=== PATIENT | female | born 1950 | race African-American/Black ===

== ENCOUNTER 2017-08-26 06:53 | Inpatient (IN) | payer MEDICARE, OTHER ==
[~2017-08-26] VITALS: Ht 160 cm; Wt 87.6 kg
[2017-08-26] MEDS ORDERED: LIDOCAINE HCL/PF 1% 2ML VIAL ONE (07:22)
[2017-08-26] MEDS ORDERED: SODIUM CHLORIDE 0.9% 1,000 ML IV ONE (07:22)
[2017-08-26 07:44] LABS: BASOPHILS % 0.4 % (0.0-2.0); EOSINOPHILS % 0.9 % (0.0-5.0); HEMATOCRIT. 35.3 % (36.0-48.0); HEMOGLOBIN. 11.9 g/dL (12.0-16.0); LYMPHOCYTES % 20.8 % (20.0-50.0); MEAN CORPUSCULAR HEMOGLOBIN 28.6 pg (28.0-32.0); MEAN CORPUSCULAR VOLUME 84.9 fL (81.0-99.0); MEAN PLATELET VOLUME 10.2 fl (7.4-10.4); MONOCYTES % 4.8 % (2.0-8.0); NEUTROPHILS % 73.1 % (40.0-76.0); PLATELET 137 x1000/uL (130-400); RED BLOOD CELL COUNT 4.15 mill/uL (4.2-5.4); RED CELL DISTRIBUTION WIDTH 13.1 % (11.6-14.6)
[2017-08-26 07:52] LABS: BG BASE EXCESS 0.8 mmol/L (-2.0-2.0); BG CARBOXYHEMOGLOBIN 0.4 % (0.5-1.5); BG DEOXYHEMOGLOBIN 4.8 % (0.0-5.0); BG HCO3 ACT 27.1 mmol/L (22.0-26.0); BG METHEMOGLOBIN 0.5 % (0.0-1.5); BG OXYGEN SATURATION 95.2 % (92.0-98.5); BG OXYHEMOGLOBIN 94.3 % (94.0-97.0); BG PCO2 50.8 mmHg (35.0-45.0); BG PH 7.345 (7.350-7.450); BG PO2 76.2 mmHg (75.0-100.0); BG SAMPLE SITE RIGHT RADIAL; BG TOTAL HEMOGLOBIN 12.1 g/dL (12.0-18.0); BG VENT MODE ROOM AIR
[2017-08-26 07:53] LABS: CHLORIDE 96 mEq/L (98-107)
[2017-08-26 08:00] VITALS: BP 152/62
[2017-08-26 08:01] LABS: CARBON DIOXIDE 27 mEq/L (21-32); TROPONIN I < 0.02 ng/mL (0.00-0.04)
[2017-08-26 08:03] LABS: BETA HYDROXYBUTYRATE 0.1 mMol/L (0.0-0.3)
[2017-08-26] MEDS ORDERED: INSULIN REGULAR (HUMULIN R) UD 100 UNITS/ML SYR SUBCUT ONE (08:30)
[2017-08-26] MEDS ORDERED: INSULIN REGULAR (HUMULIN R) 300UNITS/3ML SUBCUT NR (08:35)
[2017-08-26 08:47] LABS: CLARITY URINE CLEAR (CLEAR); COLOR URINE YELLOW (YELLOW); GLUCOSE URINE 3+ (NEGATIVE); KETONES URINE NEGATIVE (NEGATIVE); LEUKOCYTE ESTERASE URINE NEGATIVE (NEGATIVE); NITRITE URINE NEGATIVE (NEGATIVE); OCCULT BLOOD URINE 1+ (NEGATIVE); PROTEIN URINE 2+ (NEGATIVE); SPECIFIC GRAVITY URINE 1.027 (1.005-1.030); UROBILINOGEN URINE 0.2 E.U./dL (0.2-1.0)
[2017-08-26 10:00] VITALS: BP 152/62
[2017-08-26 12:00] VITALS: BP 188/78
[2017-08-26] MEDS ORDERED: DEXTROSE 50% WATER 50ML SYRINGE IV PRN (14:15)
[2017-08-26] MEDS: BLOOD SUGAR DIAGNOSTIC STRIP TEST SCH ×3 (14:28→20:38)
[2017-08-26] MEDS: INSULIN LISPRO 100 UNITS/ML SUBCUT SCH ×3 (14:43→20:46)
[2017-08-26 16:00] VITALS: BP 162/99
[2017-08-26] MEDS: ENOXAPARIN 40MG/0.4ML SYR SUBCUT SCH (18:09)
[2017-08-26 20:00] VITALS: BP 165/62
[2017-08-26] MEDS: AMLODIPINE 5MG TABLET PO SCH (20:38)
[2017-08-26 23:42] LABS: CREATINE KINASE MB FRACTION 2.8 ng/mL (0.5-3.6); TROPONIN I 0.02 ng/mL (0.00-0.04)
[2017-08-27] VITALS: BP 145/60
[2017-08-27 04:00] VITALS: BP 162/80
[2017-08-27 05:45] LABS: BASOPHILS % 0.5 % (0.0-2.0); EOSINOPHILS % 2.2 % (0.0-5.0); HEMATOCRIT. 36.7 % (36.0-48.0); HEMOGLOBIN. 12.1 g/dL (12.0-16.0); LYMPHOCYTES % 49.7 % (20.0-50.0); MEAN CORPUSCULAR VOLUME 84.6 fL (81.0-99.0); MONOCYTES % 6.2 % (2.0-8.0); NEUTROPHILS % 41.4 % (40.0-76.0); PLATELET 172 x1000/uL (130-400); RED BLOOD CELL COUNT 4.34 mill/uL (4.2-5.4); RED CELL DISTRIBUTION WIDTH 13.3 % (11.6-14.6)
[2017-08-27] MEDS: BLOOD SUGAR DIAGNOSTIC STRIP TEST SCH ×2 (06:07→12:17)
[2017-08-27] MEDS: INSULIN LISPRO 100 UNITS/ML SUBCUT SCH ×2 (06:13→12:38)
[2017-08-27 06:46] LABS: CREATINE KINASE MB FRACTION 2.9 ng/mL (0.5-3.6); TROPONIN I 0.02 ng/mL (0.00-0.04)
[2017-08-27 07:51] VITALS: BP 142/78
[2017-08-27] MEDS ORDERED: GLIPIZIDE 5MG TABLET PO SCH (09:30)
[2017-08-27] MEDS: AMLODIPINE 5MG TABLET PO SCH (09:51)
[2017-08-27] MEDS: ENOXAPARIN 40MG/0.4ML SYR SUBCUT SCH (09:52)
[2017-08-27 11:16] VITALS: BP 142/78
[2017-08-27 12:49] VITALS: BP 146/77
== END 2017-08-27 15:49 | disposition home or self-care (01) | DRG 638 ==
LOC: ER 06:53 → 5WST 08:25 → EDBEDREQ 08:28 → ENRESERV 08:41
PROVIDERS: ADMIT Internal Medicine Nephrology; ATTEND Internal Medicine Nephrology
DX: E11.65 Type 2 diabetes mellitus with hyperglycemia (principal); E44.1 Mild protein-calorie malnutrition; I11.9 Hypertensive heart disease without heart failure; E87.1 Hypo-osmolality and hyponatremia; W01.0XXA Fall on same level from slipping, tripping and stumbling without subsequent striking against object, initial encounter; E78.00 Pure hypercholesterolemia, unspecified; Y93.89 Activity, other specified; Y92.89 Other specified places as the place of occurrence of the external cause; Y99.8 Other external cause status; Z88.6 Allergy status to analgesic agent; Z68.34 Body mass index [BMI] 34.0-34.9, adult
CPT/HCPCS: 36415; 36600; 70450; 71010; 80048; 80053; 81001; 82010; 82375; 82550; 82553; 82805; 82962; 83690; 84484; 85025; 93005; 96372; 97110; 97116; 97162; 97166; 97535; 99285; J1650; J1815; J3490; J7030

== ENCOUNTER 2018-12-26 09:51 | Emergency (ER) | payer MEDICARE, OTHER ==
[~2018-12-26] VITALS: Ht 167.6 cm; Wt 75.0 kg
[2018-12-26] MEDS ORDERED: SODIUM CHLORIDE 0.9% 1,000 ML IV ONE ×2 (10:48→12:15)
[2018-12-26 11:05] LABS: HEMATOCRIT. 32.1 % (36.0-48.0); HEMOGLOBIN. 10.6 g/dL (12.0-16.0); MEAN CORPUSCULAR HEMOGLOBIN 28.6 pg (28.0-32.0); MEAN CORPUSCULAR VOLUME 86.8 fL (81.0-99.0); RED CELL DISTRIBUTION WIDTH 13.5 % (11.6-14.6)
[2018-12-26 11:07] LABS: CHLORIDE 91 mEq/L (98-107)
[2018-12-26 11:46] LABS: PLATELET ESTIMATE NORMAL
[2018-12-26 11:58] LABS: CLARITY URINE CLEAR (CLEAR); COLOR URINE YELLOW (YELLOW); KETONES URINE NEGATIVE (NEGATIVE); LEUKOCYTE ESTERASE URINE 1+ (NEGATIVE); NITRITE URINE NEGATIVE (NEGATIVE); OCCULT BLOOD URINE TRACE (NEGATIVE); PROTEIN URINE 2+ (NEGATIVE); SPECIFIC GRAVITY URINE 1.017 (1.005-1.030); UROBILINOGEN URINE 0.2 E.U./dL (0.2-1.0)
[2018-12-26] MEDS ORDERED: INSULIN REGULAR (HUMULIN R) 300UNITS/3ML SUBCUT ONE (12:15)
[2018-12-26] MEDS ORDERED: NITROFURANTOIN 100MG M/M CAPSULE PO ONE (12:15)
[2018-12-26 13:44] VITALS: BP 135/60
== END 2018-12-26 13:58 | disposition home or self-care (01) ==
LOC: ER 09:51
DX: E11.65 Type 2 diabetes mellitus with hyperglycemia (principal); N30.00 Acute cystitis without hematuria; N28.9 Disorder of kidney and ureter, unspecified; Z79.4 Long term (current) use of insulin; Z88.5 Allergy status to narcotic agent; Z88.0 Allergy status to penicillin
CPT/HCPCS: 36415; 80053; 81003; 82962; 85025; 87086; 96360; 96361; 96372; 99283; J1815; J7030